=== PATIENT | female | born 1985 | race Caucasian/White ===

== ENCOUNTER 2021-08-03 12:59 | Emergency (ER) | payer OTHER ==
[~2021-08-03] VITALS: Ht 149.9 cm; Wt 47.6 kg
[2021-08-03] MEDS ORDERED: MULTI VITAMIN1 EACH (13:23)
== END 2021-08-03 13:44 | disposition home or self-care (01) ==
LOC: ER 12:59
DX: B02.9 Zoster without complications (principal)

== ENCOUNTER 2021-12-13 17:25 | Emergency (ER) | payer OTHER ==
[~2021-12-13] VITALS: Ht 147.3 cm; Wt 47.6 kg
[~2021-12-13 17:25] MED LIST: MULTI VITAMIN1 EACH
== END 2021-12-13 21:43 | disposition home or self-care (01) ==
LOC: ER 17:25
DX: B02.9 Zoster without complications (principal); B02.29 Other postherpetic nervous system involvement